=== PATIENT | male | born 1940 | race Caucasian/White ===

== ENCOUNTER 2016-05-19 17:03 | Emergency (ER) | payer OTHER ==
[~2016-05-19] VITALS: Ht 175.3 cm; Wt 852.8 kg
[2016-05-19 17:11] VITALS: BP 172/69
--- NOTE | 2016-05-19 17:16 | ED NOSE COMPLAINT ---
History of Present Illness General Chief Complaint: Epistaxis/Nasal Foreign Body Stated Complaint: NOSE BLEED Source: patient, family, old records Exam Limitations: no limitations Vital Signs & Intake/Output Vital Signs & Intake/Output Vital Signs Date Time Temp Pulse Resp B/P Pulse O2 O2 Flow FiO2 Ox Delivery Rate 05/19 1711 97.8 62 16 172/69 97 Room Air Allergies Coded Allergies: No Known Allergies (05/19/16) Reconcile Medications Atenolol 50 MG TABLET 1 TAB PO DAILY BP (Reported) Clopidogrel Bisulfate (Clopidogrel) 75 MG TABLET 1 TAB PO DAILY BLOOD THINNER (Reported) Duloxetine Hydrochloride (Cymbalta) 20 MG CAPSULE.DR 1 CAP PO DAILY NEUROPATHY (Reported) Ezetimibe (Zetia) 10 MG TABLET 1 TAB PO DAILY CHOLESTEROL (Reported) Furosemide (Lasix) 20 MG TABLET 1 TAB PO Saturday DIURETIC (Reported ) Multivitamin (Multi-Day Vitamins) 1 EACH TABLET 1 TAB PO DAILY SUPPLEMENT ( Reported) Nitroglycerin 400 MCG/SPRAY SPRAY 1 SPRAY SL AD PRN CHEST PAIN (Reported) Quinapril HCl 10 MG TABLET 1 TAB PO DAILY BP (Reported) Rosuvastatin Calcium (Crestor) 40 MG TABLET 1 TAB PO DAILY CHOLESTEROL ( Reported) Warfarin Sodium (Coumadin) 5 MG TABLET 1 TAB PO AD BLOOD THINNER (Reported) Warfarin Sodium (Jantoven) 7.5 MG TABLET 1 TAB PO Saturday BLOOD THINNER (Reported) Triage Note: PT STATES HE HAS HAD A NOSE BLEED FOR THE PAST 6 HOURS. PT STATES IT IS JUST DRIPPING DOWN THE BACK OF HIS THROAT. PT IS CURRENTLY TAKING COUMADIN AND PLAVIX. Triage Nurses Notes Reviewed? yes Onset: Abrupt Duration: hour(s): (6), constant Timing: recent history Injury Environment: home Severity: mild Severity Numbers: 5 No Modifying Factors: none Associated Symptoms: denies HPI: 75-year-old male with history of CABG coronary artery disease on Coumadin and Plavix presents complaining of a left sided nosebleed that's been present for the past 6 hours. Patient states that the blood has stopped dripping from his nose however he feels it running down the back of his mouth. He denies any known injury or trauma. Patient states is been one month since he's had his Coumadin checked. He denies any chest pain shortness of breath dizziness lightheadedness or any other complaints. (LEVI CORTEZ) Past History Travel History Traveled to [place] past 21 day No Medical History Any Pertinent Medical History? see below for history Cardiovascular: BIPASS SURGERY 4 STENTS Renal: TURP Surgical History Surgical History: CABG Psychosocial History What is your primary language Singaporean Tobacco Use: Quit >30 days ago ETOH Use: denies use Illicit Drug Use: denies illicit drug use Family History Hx Contributory? No (LEVI CORTEZ) Review of Systems Review of Systems Constitutional: Reports: see HPI. All Other Systems: Reviewed and Negative Comments Review of systems: See HPI, All other systems negative. Constitutional, no chills no fever, no malaise HEENT: No visual changes no sore throat no congestion, no ear pain Cardiovascular: No chest pain , no palpitation Skin, no rashes, no change in skin Respiratory: No dyspnea no cough no sputum GI: No nausea no vomiting, no diarrhea : No dysuria No hematuria Muscle skeletal: No joint pain, no back pain, no neck pain, Neurologic: No numbness no headache Psych: No stress Heme/endocrine: No bruising no bleeding Immunology: No lymphadenopathy (LEVI CORTEZ) Physical Exam Physical Exam General Appearance: well developed/nourished, no apparent distress, alert, awake , comfortable Nose: normal inspection, no dry blood noted to nostril Comments: Well-developed well-nourished patient in no apparent distress. Head/Face: Atraumatic, no maxillary/frontal sinus tenderness, no facial swelling Eyes: PERRL, EOMI, no conjunctival injection. Ear:External auditory canals clear, no erythema, no FB. Nose: atraumatic.Normal inspection: No active bleeding, no septal hematoma Throat: Moist mucous membranes.Pharynx normal. No pharyngeal erythema/exudate seen. No stridor/drooling or assymetry. No swelling or edema. Small amount of blood noted to the posterior pharynx no gingival bleeding Neck: Supple, no lymphadenopathy, FROM Back: FROM, Nontender Cardiovascular: Regular rate and rhythms no murmurs rubs or gallops, Respiratory: No respiratory distress. Patient speaking in full complete sentences. Breath sounds clear to auscultation bilaterally: NO W/R/R Extremities: full range of motion Neuro: Alert and oriented x3 Skin: Warm & dry;No appreciable rash on exposed skin Psych: Mood affect normal, normal memory normal judgment. (LEVI CORTEZ) Progress Differential Diagnoses I considered the following diagnoses in my evaluation of the patient: Anterior versus posterior epistaxis elevated INR Plan of Care: Orders Procedure Date/time Status PROTHROMBIN TIME 05/19 1715 Complete Laboratory Tests 05/19/16 1730: PT 41.7 H, INR 4.03 *H Labs ordered old records reviewed patient speaking in full complete sentences small amount of blood noted to the posterior pharynx the nose was instilled with Afrin we will continue to monitor case was discussed with Dr. Dumont On repeat evaluation patient is able to swish and spit without any blood noted will continue to monitor pending inr 05/19/2016 6:13:50 PM on repeat evaluation patient again is able to swish and spit there is no blood noted in the sink there is no blood noted to the posterior pharynx there is no active bleeding from the nostril. Discussed with him his elevated Coumadin he will hold his dose this evening, and will restart this medication tomorrow. The patient was provided with information for follow- up with ENT he will return anytime sooner with any concerns I answered all their questions they felt comfortable with this plan (LEVI CORTEZ) Initial ED EKG: none (LEVI CORTEZ) Departure Departure Time of Disposition: 1803 Disposition: HOME OR SELF CARE Condition: Stable Clinical Impression Primary Impression: Epistaxis Referrals: DAVI TADEO,Arleen LEUNG Additional Instructions: Holdyour Coumadin dose this evening. Begin taking this medication tomorrow once again as you normall would. Follow up with ear nose and throat physician dr billingsley on saturday if symptoms persist. return at anytime sooner with any concerns Departure Forms: Customer Survey General Discharge Information (LEVI CORTEZ) PA/PROTOHISTORIAN Co-Sign Statement Statement: ED Attending supervision documentation- [X] I saw and evaluated the patient. I have also reviewed all the pertinent lab results and diagnostic results. I agree with the findings and the plan of care as documented in the PA's/PROTOHISTORIAN's documentation. [X] I have reviewed the ED Record and agree with the PA's/PROTOHISTORIAN's documentation. [] Additions or exceptions (if any) to the PAs/PROTOHISTORIAN's note and plan are summarized below: [] (JESSICA TADEO,VALERY Zaman
[2016-05-19] MEDS ORDERED: ATENOLOL50 M1 PO (17:39)
[2016-05-19] MEDS ORDERED: QUINAPRIL HCL10 M1 PO (17:40)
[2016-05-19] MEDS ORDERED: COUMADIN5 M2 PO (17:41)
[2016-05-19] MEDS ORDERED: CRESTOR40 M2 PO (17:41)
[2016-05-19] MEDS ORDERED: JANTOVEN7.5 M1 PO (17:41)
[2016-05-19] MEDS ORDERED: CYMBALTA20 M1 PO (17:42)
[2016-05-19] MEDS ORDERED: LASIX20 M1 PO (17:42)
[2016-05-19] MEDS ORDERED: CLOPIDOGREL75 M1 PO (17:43)
[2016-05-19] MEDS ORDERED: MULTI-DAY VITA1 EACH PO (17:43)
[2016-05-19] MEDS ORDERED: ZETIA10 M1 PO (17:43)
[2016-05-19] MEDS ORDERED: NITROGLYCERIN4.1 GM SL (17:44)
[2016-05-19 17:53] LABS: PT 41.7 SEC (9.4-12.5)
== END 2016-05-19 18:25 ==
LOC: ERH 17:03
PROVIDERS: Physician Assistant Medical
DX: R04.0 Epistaxis (principal)